=== PATIENT | male | born 1945 | race Caucasian/White ===

== ENCOUNTER 2020-09-10 15:38 | Inpatient (IN) | payer MEDICARE, OTHER ==
[~2020-09-10] VITALS: Ht 172.7 cm; Wt 116.6 kg
[~2020-09-10 15:38] MED LIST: ARTIFICIAL TEA1 EACH OP; ATIVAN0.5 MG PO; CALCIUM500 M1 PO; CEFUROXIME500 MG PO; CONSTULOSE10 GM/15 M PO; FEVERALL650 MG PR; HIGH POTENCY I134 MG PO; IBUPROFEN400 MG PO; IMODIUM CAP 2 MG2 MG PO; IPRAT-ALBUT 0.5-3 ML INH; K-PHOS ORIGINA500 MG PO; KEFLEX CAP 500500 MG PO; LOPRESSOR 25 MG25 MG PO; LORTAB 7.5-3251 EACH PO; MAGNESIUM OXID400 M1 PO; MAPAP500 MG PO; MELATONIN3 M3 PO; MULTI-VITAMIN1 EACH PO; MYLANTA MAXIMU355 ML PO; NICOTINE PATCH1 EAC5 TD; PATADAY2.5 ML EYEBOTH; POLYETHYLENE GL17 GM PO; PREDNISONE10 MG PO; PROTONIX40 MG PO; ROBITUSSIN DM UD5 ML PO; ROCEPHIN 1 GM AD1 GM IV; SPIRIVA HANDIH18 MCG INH; SYMBICORT 160-1 INHA INH; TESSALON PERLE100 MG PO; VENTOLIN HFA 66.7 GM INH
[2020-09-10 16:36] LABS: RED BLOOD COUNT 4.57 M/UL (4.20-5.50); WHITE BLOOD COUNT 9.9 K/UL (4.5-11.0)
[2020-09-10 16:53] LABS: BUN/CREATININE RATIO 16 (0-10)
[2020-09-10] MEDS ORDERED: OMNICEF 300 MG300 MG PO (18:54)
[2020-09-10] MEDS ORDERED: FERATE240 MG PO (18:55)
[2020-09-10] MEDS ORDERED: ATIVAN0.5 MG PO (18:55)
[2020-09-10] MEDS ORDERED: HYDROCODON-ACE1 EAC4 PO (18:56)
[2020-09-10] MEDS ORDERED: CONSTULOSE10 GM/15 M PO (18:56)
[2020-09-10] MEDS ORDERED: IPRAT-ALBUT 0.5-3 ML INH (18:57)
[2020-09-10] MEDS ORDERED: MELATONIN3 MG PO (18:57)
[2020-09-10] MEDS ORDERED: MAGOX 400400 MG PO (18:57)
[2020-09-10] MEDS ORDERED: MIRALAX17 GM PO (18:58)
[2020-09-10] MEDS ORDERED: MYLANTA MAXIMU355 ML PO (18:59)
[2020-09-10] MEDS ORDERED: SPIRIVA18 MCG INH (19:00)
[2020-09-10] MEDS ORDERED: PROTONIX40 MG PO (19:00)
[2020-09-10] MEDS ORDERED: CALCIUM500 M1 PO (19:01)
[2020-09-10] MEDS ORDERED: SYMBICORT 16010.2 GM INH (19:01)
[2020-09-10] MEDS ORDERED: ZOLOFT100 MG PO (19:02)
[2020-09-11 03:43] LABS: HEMOGLOBIN 14.5 gm/dl (14.0-17.5); RED BLOOD COUNT 4.36 M/UL (4.20-5.50); WHITE BLOOD COUNT 9.5 K/UL (4.5-11.0)
[2020-09-11 04:03] LABS: BUN/CREATININE RATIO 18 (0-10)
[2020-09-11] MEDS ORDERED: LOPRESSOR 25 MG25 MG PO (18:57)
[2020-09-12 05:56] LABS: HEMOGLOBIN 16.8 gm/dl (14.0-17.5); RED BLOOD COUNT 4.99 M/UL (4.20-5.50); WHITE BLOOD COUNT 18.5 K/UL (4.5-11.0)
[2020-09-12 07:26] LABS: BUN/CREATININE RATIO 23 (0-10)
--- NOTE | 2020-09-12 10:32 | NUR ---
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 DENIES ANY SOA, CHEST PAIN OR PRESSURE. VAGAL MANUEVERS ATTEPMTED, COUGH, BEARING DOWN, UNSUCCESSFUL. DR GRANT NOTIFIED, WITH NEW ORDERS OBTAINED: 500 ML NS BOLUS STARTED, 5MG LOPPRESSOR IV GIVEN, STAT CXR, AND CARDIOLOGY CONSULT DONE. HR RETURNED TO NSR 80'S.
[2020-09-13 05:55] LABS: HEMOGLOBIN 16.9 gm/dl (14.0-17.5); RED BLOOD COUNT 5.01 M/UL (4.20-5.50); WHITE BLOOD COUNT 17.8 K/UL (4.5-11.0)
[2020-09-13 06:21] LABS: BUN/CREATININE RATIO 29 (0-10)
[2020-09-14 07:23] LABS: HEMOGLOBIN 16.8 gm/dl (14.0-17.5); WHITE BLOOD COUNT 15.4 K/UL (4.5-11.0)
[2020-09-14 07:46] LABS: BUN/CREATININE RATIO 27 (0-10)
[2020-09-14] MEDS ORDERED: ELIQUIS 5 MG TAB5 MG PO (12:16)
[2020-09-14] MEDS ORDERED: LEVOFLOXACIN500 MG PO (12:16)
[2020-09-14] MEDS ORDERED: LOPRESSOR 25 MG25 MG PO (12:16)
[2020-09-14] MEDS ORDERED: POTASSIUM CHLO20 ME2 PO (12:16)
[2020-09-14] MEDS ORDERED: FUROSEMIDE40 MG PO (12:16)
[2020-09-16 04:18] LABS: HEMOGLOBIN 15.6 gm/dl (14.0-17.5); RED BLOOD COUNT 4.74 M/UL (4.20-5.50); WHITE BLOOD COUNT 11.1 K/UL (4.5-11.0)
[2020-09-16 04:43] LABS: BUN/CREATININE RATIO 20 (0-10)
== END 2020-09-17 17:21 | DRG 291 ==
LOC: ER1 15:38 → CDU 17:33 → M/S 17:33
PROVIDERS: Preventive Medicine Occupational Medicine; ADMIT Internal Medicine
PROC: B24BZZZ Ultrasonography of Heart with Aorta (ICD-10-PCS; principal; 2020-09-13)
DX: I11.0 Hypertensive heart disease with heart failure (principal); J96.21 Acute and chronic respiratory failure with hypoxia; J96.22 Acute and chronic respiratory failure with hypercapnia; J44.1 Chronic obstructive pulmonary disease with (acute) exacerbation; I47.1 Supraventricular tachycardia; Z20.822 Contact with and (suspected) exposure to COVID-19; I50.43 Acute on chronic combined systolic (congestive) and diastolic (congestive) heart failure; I48.0 Paroxysmal atrial fibrillation; E66.01 Morbid (severe) obesity due to excess calories; E87.6 Hypokalemia; R53.81 Other malaise; K70.30 Alcoholic cirrhosis of liver without ascites; K59.00 Constipation, unspecified; K21.9 Gastro-esophageal reflux disease without esophagitis; E11.9 Type 2 diabetes mellitus without complications; D50.9 Iron deficiency anemia, unspecified; Z79.01 Long term (current) use of anticoagulants; Z99.81 Dependence on supplemental oxygen; Z98.890 Other specified postprocedural states; Z87.891 Personal history of nicotine dependence; Z86.16 Personal history of COVID-19; Z68.39 Body mass index [BMI] 39.0-39.9, adult
CPT/HCPCS: ECHO; 0240U; 36415; 36600; 71045; 80048; 80053; 82140; 82550; 82553; 82803; 83690; 83735; 83874; 84484; 85025; 85652; 86140; 93005; 93306; 94640; 94660; 94664; 94760; 96374; 96375; 97162; 97166; 97530; 97535; 99285; J0696; J1940; J2543; J2930; J3480; J7030; U0002

== ENCOUNTER 2021-02-22 01:58 | Emergency (ER) | payer MEDICARE, OTHER ==
[~2021-02-22 01:58] MED LIST changes: +ELIQUIS 5 MG TAB5 MG PO; +FERATE240 MG PO; +FUROSEMIDE40 MG PO; +HYDROCODON-ACE1 EAC4 PO; +LEVOFLOXACIN500 MG PO; +MAGOX 400400 MG PO; +MELATONIN3 MG PO; +MIRALAX17 GM PO; +OMNICEF 300 MG300 MG PO; +POTASSIUM CHLO20 ME2 PO; +SPIRIVA18 MCG INH; +SYMBICORT 16010.2 GM INH; +ZOLOFT100 MG PO
[2021-02-22 02:40] LABS: HEMOGLOBIN 8.9 gm/dl (14.0-17.5); RED BLOOD COUNT 3.96 M/UL (4.20-5.50); WHITE BLOOD COUNT 13.9 K/UL (4.5-11.0)
[2021-02-22 03:32] LABS: BUN/CREATININE RATIO 14 (0-10)
== END 2021-02-22 10:04 | disposition home or self-care (01) ==
LOC: ER1 01:58
PROVIDERS: Physician Assistant
DX: R41.82 Altered mental status, unspecified (principal); J44.9 Chronic obstructive pulmonary disease, unspecified; K21.9 Gastro-esophageal reflux disease without esophagitis; Z99.81 Dependence on supplemental oxygen; I50.9 Heart failure, unspecified; E66.9 Obesity, unspecified
CPT/HCPCS: 80048; 81001; 82550; 82553; 83874; 84484; 85025; 87086; 94760; 99285

== ENCOUNTER 2021-03-03 21:53 | Inpatient (IN) | payer MEDICARE, OTHER ==
[~2021-03-03] VITALS: Ht 177.8 cm; Wt 114.3 kg
[~2021-03-03 21:53] MED LIST changes: -HYDROCODON-ACE1 EAC4 PO; -MIRALAX17 GM PO; -ZOLOFT100 MG PO
[2021-03-03 22:14] LABS: HEMOGLOBIN 9.3 gm/dl (14.0-17.5); RED BLOOD COUNT 4.43 M/UL (4.20-5.50); WHITE BLOOD COUNT 20.9 K/UL (4.5-11.0)
[2021-03-03 22:48] LABS: BUN/CREATININE RATIO 18 (0-10)
[2021-03-04 04:34] LABS: RED BLOOD COUNT 3.78 M/UL (4.20-5.50); WHITE BLOOD COUNT 61.2 K/UL (4.5-11.0)
[2021-03-04 08:19] LABS: HEMOGLOBIN 7.4 gm/dl (14.0-17.5); RED BLOOD COUNT 3.56 M/UL (4.20-5.50)
[2021-03-04 08:44] LABS: WHITE BLOOD COUNT 60.2 K/UL (4.5-11.0)
[2021-03-04] MEDS ORDERED: REFRESH TEARS15 ML EYEBOTH (14:22)
[2021-03-04] MEDS ORDERED: IBU400 MG PO (14:25)
[2021-03-04] MEDS ORDERED: OLOPATADINE EYEBOTH (14:28)
[2021-03-04] MEDS ORDERED: ATIVAN0.5 MG PO (18:55)
[2021-03-04] MEDS ORDERED: HYDROCODON-ACE1 EAC4 PO (18:56)
[2021-03-04] MEDS ORDERED: MIRALAX17 GM PO (18:58)
[2021-03-04] MEDS ORDERED: PROTONIX40 MG PO (19:00)
[2021-03-04] MEDS ORDERED: ZOLOFT50 MG PO (19:02)
[2021-03-05 07:59] LABS: HEMOGLOBIN 7.1 gm/dl (14.0-17.5); RED BLOOD COUNT 3.44 M/UL (4.20-5.50)
[2021-03-05 08:31] LABS: WHITE BLOOD COUNT 39.9 K/UL (4.5-11.0)
[2021-03-05 08:34] LABS: BUN/CREATININE RATIO 30 (0-10)
[2021-03-05 16:15] LABS: HEMATOCRIT 24.7 % (37.5-51.0)
[2021-03-06 06:39] LABS: HEMOGLOBIN 7.1 gm/dl (14.0-17.5); RED BLOOD COUNT 3.49 M/UL (4.20-5.50)
[2021-03-06 06:40] LABS: WHITE BLOOD COUNT 28.8 K/UL (4.5-11.0)
[2021-03-06 07:07] LABS: BUN/CREATININE RATIO 26 (0-10)
[2021-03-07 05:45] LABS: HEMOGLOBIN 8.8 gm/dl (14.0-17.5); WHITE BLOOD COUNT 27.1 K/UL (4.5-11.0)
[2021-03-07 05:46] LABS: RED BLOOD COUNT 4.28 M/UL (4.20-5.50)
[2021-03-08 06:58] LABS: HEMOGLOBIN 8.3 gm/dl (14.0-17.5); RED BLOOD COUNT 4.06 M/UL (4.20-5.50); WHITE BLOOD COUNT 24.5 K/UL (4.5-11.0)
[2021-03-08 07:01] LABS: BUN/CREATININE RATIO 21 (0-10)
[2021-03-08] MEDS ORDERED: ATIVAN0.5 MG PO (17:46)
[2021-03-08] MEDS ORDERED: HYDROCODON-ACE1 EAC4 PO (17:46)
[2021-03-08] MEDS ORDERED: TAB-A-VITE TA400 MC1 PO (17:46)
[2021-03-08] MEDS ORDERED: FERROUS SULFAT325 M2 PO (17:46)
[2021-03-08] MEDS ORDERED: BACTRIM DS TAB1 EACH PO (17:46)
[2021-03-09 06:36] LABS: HEMOGLOBIN 7.9 gm/dl (14.0-17.5); RED BLOOD COUNT 3.88 M/UL (4.20-5.50); WHITE BLOOD COUNT 21.9 K/UL (4.5-11.0)
[2021-03-10 06:50] LABS: BUN/CREATININE RATIO 24 (0-10)
[2021-03-10] MEDS ORDERED: ROCEPHIN IM/I2000 MG IV (11:27)
--- NOTE | 2021-03-10 16:17 | NUR ---
longterm request not to d/c iv site.
== END 2021-03-10 16:19 | DRG 871 ==
LOC: ER1 21:53 → M/S 23:20 → CDU 23:20 → 3 EAST 03-04 17:29 → M/S 03-05 16:50
PROVIDERS: Emergency Medicine; Internal Medicine; ADMIT Internal Medicine
DX: A41.51 Sepsis due to Escherichia coli [E. coli] (principal); G93.41 Metabolic encephalopathy; Z20.822 Contact with and (suspected) exposure to COVID-19; J96.21 Acute and chronic respiratory failure with hypoxia; F10.27 Alcohol dependence with alcohol-induced persisting dementia; I47.1 Supraventricular tachycardia; J44.1 Chronic obstructive pulmonary disease with (acute) exacerbation; N17.9 Acute kidney failure, unspecified; E87.2 Acidosis; N10 Acute pyelonephritis; R65.20 Severe sepsis without septic shock; L89.151 Pressure ulcer of sacral region, stage 1; I47.9 Paroxysmal tachycardia, unspecified; E86.0 Dehydration; I48.0 Paroxysmal atrial fibrillation; E66.01 Morbid (severe) obesity due to excess calories; K82.9 Disease of gallbladder, unspecified; D50.9 Iron deficiency anemia, unspecified; F17.210 Nicotine dependence, cigarettes, uncomplicated; D72.823 Leukemoid reaction; F11.10 Opioid abuse, uncomplicated; I95.9 Hypotension, unspecified; K70.40 Alcoholic hepatic failure without coma; K74.60 Unspecified cirrhosis of liver; K44.9 Diaphragmatic hernia without obstruction or gangrene; K59.00 Constipation, unspecified; R53.81 Other malaise; Z74.01 Bed confinement status; Z79.01 Long term (current) use of anticoagulants; Z99.81 Dependence on supplemental oxygen; Z68.36 Body mass index [BMI] 36.0-36.9, adult
CPT/HCPCS: 0240U; 36415; 70450; 71045; 80048; 80053; 80202; 80307; 81001; 82140; 82550; 82553; 82607; 82728; 82746; 82747; 82803; 82962; 83540; 83550; 83605; 83735; 83921; 84439; 84443; 84484; 85007; 85025; 85027; 85652; 86140; 87040; 87077; 87086; 87186; 87205; 93005; 94640; 94664; 94760; 96374; 96375; 96376; 99285; G0378; J0153; J0692; J0696; J1756; J1940; J2543; J2920; J3370; J3486; J7030; J7070; Q9967

== ENCOUNTER 2021-07-30 11:05 | Inpatient (IN) | payer MEDICARE, OTHER ==
[~2021-07-30] VITALS: Ht 175.3 cm; Wt 92.5 kg
[~2021-07-30 11:05] MED LIST changes: +BACTRIM DS TAB1 EACH PO; +CALCIUM CARBON200 MG PO; +FERROUS SULFAT325 M2 PO; +HYDROCODON-ACE1 EAC4 PO; +IBU400 MG PO; +MIRALAX17 GM PO; +OLOPATADINE EYEBOTH; +REFRESH TEARS15 ML EYEBOTH; +ROCEPHIN IM/I2000 MG IV; +TAB-A-VITE TA400 MC1 PO; +ZOLOFT25 MG PO
[2021-07-30 11:51] LABS: HEMOGLOBIN 10.7 gm/dl (14.0-17.5); RED BLOOD COUNT 4.27 M/UL (4.20-5.50); WHITE BLOOD COUNT 16.4 K/UL (4.5-11.0)
[2021-07-30] MEDS ORDERED: FERROUS SULFAT325 MG PO (11:54)
[2021-07-30] MEDS ORDERED: FUROSEMIDE40 MG PO (11:54)
[2021-07-30] MEDS ORDERED: METOPROLOL TART25 MG PO (11:58)
[2021-07-30] MEDS ORDERED: HYDROCODON-ACE1 EAC4 PO ×2 (11:59→12:00)
[2021-07-30] MEDS ORDERED: ELIQUIS5 MG PO (12:01)
[2021-07-30] MEDS ORDERED: ATIVAN0.5 MG PO (12:01)
[2021-07-30] MEDS ORDERED: ARTIFICIAL TEA1 EACH OU (12:02)
[2021-07-30] MEDS ORDERED: PATADAY5 ML OU (12:02)
[2021-07-30] MEDS ORDERED: MULTIVITAMIN1 EACH PO (12:03)
[2021-07-30 12:15] LABS: BUN/CREATININE RATIO 50 (0-10)
[2021-07-30 15:16] LABS: HEMOGLOBIN 9.8 gm/dl (14.0-17.5); RED BLOOD COUNT 3.89 M/UL (4.20-5.50); WHITE BLOOD COUNT 17.4 K/UL (4.5-11.0)
[2021-07-30 15:38] LABS: BUN/CREATININE RATIO 54 (0-10)
[2021-07-30 18:49] LABS: HEMOGLOBIN 9.1 gm/dl (14.0-17.5)
[2021-07-31 02:36] LABS: HEMOGLOBIN 8.5 gm/dl (14.0-17.5); WHITE BLOOD COUNT 15.7 K/UL (4.5-11.0)
[2021-07-31 02:43] LABS: RED BLOOD COUNT 3.34 M/UL (4.20-5.50)
[2021-07-31 03:09] LABS: BUN/CREATININE RATIO 49 (0-10)
[2021-07-31 09:42] LABS: HEMOGLOBIN 7.6 gm/dl (14.0-17.5)
[2021-07-31 17:59] LABS: HEMOGLOBIN 9.9 gm/dl (14.0-17.5)
[2021-08-01 03:12] LABS: HEMOGLOBIN 9.5 gm/dl (14.0-17.5); RED BLOOD COUNT 3.54 M/UL (4.20-5.50)
[2021-08-01 03:16] LABS: WHITE BLOOD COUNT 10.5 K/UL (4.5-11.0)
[2021-08-01 03:39] LABS: BUN/CREATININE RATIO 28 (0-10)
[2021-08-01 18:22] LABS: HEMOGLOBIN 9.7 gm/dl (14.0-17.5)
[2021-08-02 05:07] LABS: HEMOGLOBIN 9.2 gm/dl (14.0-17.5); RED BLOOD COUNT 3.41 M/UL (4.20-5.50)
[2021-08-02 05:53] LABS: BUN/CREATININE RATIO 12 (0-10)
[2021-08-03 05:26] LABS: HEMOGLOBIN 9.7 gm/dl (14.0-17.5); RED BLOOD COUNT 3.55 M/UL (4.20-5.50); WHITE BLOOD COUNT 8.1 K/UL (4.5-11.0)
[2021-08-03 05:58] LABS: BUN/CREATININE RATIO 9 (0-10)
[2021-08-03 17:27] LABS: ADENOVIRUS F 40/41 Not Detected (Negative); ASTROVIRUS Not Detected (Negative); CAMPYLOBACTER Not Detected (Negative); CRYPTOSPORIDIUM Not Detected (Negative); E.COLI 0157 Not Detected (Negative); ENTAMOEBA HISTOLYTICA Not Detected (Negative); ENTEROAGGREGATIVE E.COLI (EAEC Not Detected (Negative); ENTEROPATHOGENIC E.COLI (EPEC) Not Detected (Negative); ENTEROTOXIGENIC E.COLI (ETEC) Not Detected (Negative); GIARDIA LAMBLIA Not Detected (Negative); NOROVIRUS GI/GII Not Detected (Negative); PLESIOMONAS SHIGELLOIDES Not Detected (Negative); ROTOVIRUS A Not Detected (Negative); SALMONELLA Not Detected (Negative); SAPOVIRUS Not Detected (Negative); SHIG/ENTEROINVAS.ECOLI (EIEC) Not Detected (Negative); SHIGA-LIK TOX.PRO.E.COLI (STEC Not Detected (Negative); VIBRIO Not Detected (Negative); VIBRIO CHOLERAE Not Detected (Negative); YERSINIA ENTEROCOLITICA Not Detected (Negative)
[2021-08-04 07:13] LABS: BUN/CREATININE RATIO 8 (0-10)
[2021-08-04 08:50] LABS: HEMOGLOBIN 10.8 gm/dl (14.0-17.5); RED BLOOD COUNT 4.05 M/UL (4.20-5.50); WHITE BLOOD COUNT 9.8 K/UL (4.5-11.0)
[2021-08-05] MEDS ORDERED: LOPRESSOR 25 MG25 MG PO (10:54)
[2021-08-05] MEDS ORDERED: HYDROCODON-ACE1 EAC4 PO ×2 (10:59)
[2021-08-05] MEDS ORDERED: ATIVAN0.5 MG PO (10:59)
[2021-08-05] MEDS ORDERED: AMOX TR-K CLV1 EAC4 PO (11:18)
== END 2021-08-05 14:00 | DRG 871 ==
LOC: ER1 11:05 → CDU 13:25 → PROG CARE 13:25 → CCU 13:25 → PROG CARE 08-03 18:57
PROVIDERS: Internal Medicine; Internal Medicine Gastroenterology; Internal Medicine Infectious Disease; Internal Medicine Pulmonary Disease; Physician Assistant Medical; Student in an Organized Health Care Education/Training Program; ADMIT Internal Medicine
PROC: 3E03329 Introduction of Other Anti-infective into Peripheral Vein, Percutaneous Approach (ICD-10-PCS; 2021-07-30)
PROC: 0DJ08ZZ Inspection of Upper Intestinal Tract, Via Natural or Artificial Opening Endoscopic (ICD-10-PCS; 2021-07-31)
PROC: 30233N1 Transfusion of Nonautologous Red Blood Cells into Peripheral Vein, Percutaneous Approach (ICD-10-PCS; principal; 2021-07-31 13:00)
DX: A41.9 Sepsis, unspecified organism (principal); R65.21 Severe sepsis with septic shock; J18.9 Pneumonia, unspecified organism; K92.2 Gastrointestinal hemorrhage, unspecified; D62 Acute posthemorrhagic anemia; E87.1 Hypo-osmolality and hyponatremia; J96.11 Chronic respiratory failure with hypoxia; I48.91 Unspecified atrial fibrillation; K70.30 Alcoholic cirrhosis of liver without ascites; I48.0 Paroxysmal atrial fibrillation; E83.42 Hypomagnesemia; E87.6 Hypokalemia; J44.9 Chronic obstructive pulmonary disease, unspecified; E66.01 Morbid (severe) obesity due to excess calories; F17.200 Nicotine dependence, unspecified, uncomplicated; Z79.01 Long term (current) use of anticoagulants; Z74.01 Bed confinement status; Z99.81 Dependence on supplemental oxygen
CPT/HCPCS: 36415; 36430; 70450; 71045; 80048; 80053; 82272; 82550; 82553; 83605; 83735; 84132; 84439; 84443; 84484; 85014; 85018; 85025; 85027; 85610; 85730; 86850; 86900; 86901; 86920; 87040; 87449; 87507; 93005; 94640; 94664; 94760; 97162; 97530; 99285; C9113; J0282; J0696; J2185; J2250; J2354; J2370; J3010; J3475; J3480; J7030; J7168; P9016

== ENCOUNTER → 2021-11-08 | Outpatient (CLI) | payer MEDICARE, OTHER ==
[~2021-11-08] MED LIST changes: +AMOX TR-K CLV1 EAC4 PO; +ARTIFICIAL TEA1 EACH OU; +ELIQUIS5 MG PO; +FERROUS SULFAT325 MG PO; +METOPROLOL TART25 MG PO; +MULTIVITAMIN1 EACH PO; +PATADAY5 ML OU
== END ==
LOC: CT 10:17
DX: D72.821 Monocytosis (symptomatic) (principal); D64.9 Anemia, unspecified; D72.829 Elevated white blood cell count, unspecified; R97.1 Elevated cancer antigen 125 [CA 125]
CPT/HCPCS: J1644; J2250; J3010; J3370